=== PATIENT | male | born 1995 | race American Indian/Alaskan Native ===

== ENCOUNTER 2020-10-09 08:55 | Emergency (ER) | payer OTHER ==
[2020-10-09 11:34] VITALS: BP 121/71
--- NOTE | 2020-10-09 11:52 | Emergency Department Report ---
ED General Adult HPI - General Chief complaint: Extremity Injury, Lower Stated complaint: SWOLLEN FEET HANDS,PAIN IN LT LEG Time Seen by Provider: 10/09/20 11:46 Source: patient Mode of arrival: Ambulatory Limitations: No Limitations - History of Present Illness Initial comments: 25-year-old -[place] male patient presents with complaints of bilateral foot and hand swelling with pain for the past 2 days. He denies any injuries to his hands. 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 He denies any fever/chills/sweats, difficulty moving his limbs, numbness/tingling/weakness, or difficulty with ambulation. No past medical history per patient. He has not tried any OTC medications for his symptoms. Patient has allergy to ibuprofen Severity scale (0 -10): 8 - Related Data Previous Rx's Medication Instructions Recorded Last Taken Type Acetaminophen [Tylenol] 1,000 mg PO Q6H PRN #30 tablet 10/09/20 Unknown Rx Prednisone [predniSONE 10 mg 10 mg PO .TAPER #1 tab.ds.pk 10/09/20 Unknown Rx (6-Day Pack, 21 Tabs)] Allergies Allergy/AdvReac Type Severity Reaction Status Date / Time ibuprofen Allergy Swelling Verified 10/09/20 11:34 ED Review of Systems ROS: Stated complaint: SWOLLEN FEET HANDS,PAIN IN LT LEG Other details as noted in HPI Constitutional: denies: chills, diaphoresis, fever, malaise Musculoskeletal: joint swelling, arthralgia Skin: denies: change in color Neurological: denies: numbness, paresthesias, abnormal gait ED Past Medical Hx - Past Medical History Previous Medical History?: No - Surgical History Past Surgical History?: No - Medications Home Medications: Home Medications Medication Instructions Recorded Confirmed Last Taken Type Acetaminophen [Tylenol] 1,000 mg PO Q6H PRN #30 tablet 10/09/20 Unknown Rx Prednisone [predniSONE 10 mg 10 mg PO .TAPER #1 tab.ds.pk 10/09/20 Unknown Rx (6-Day Pack, 21 Tabs)] ED Physical Exam - General Limitations: No Limitations General appearance: alert, in no apparent distress - Head Head exam: Present: atraumatic, normocephalic - Eye Eye exam: Present: normal appearance - Respiratory Respiratory exam: Absent: respiratory distress - Cardiovascular Cardiovascular Exam: Present: regular rate - Extremities Exam Extremities exam: Present: other (Tenderness to palpation noted bilaterally to distal feet and palms of the hands and fingers without obvious swelling, dec reased sensation, decreased range of motion, erythema, or deformities) - Neurological Exam Neurological exam: Present: alert, oriented X3 - Psychiatric Psychiatric exam: Present: normal affect, normal mood - Skin Skin exam: Present: warm, dry, intact, normal color. Absent: rash ED Course Vital Signs 10/09/20 11:33 Temperature 98.3 F Pulse Rate 87 Respiratory 20 Rate Blood Pressure 121/71 [Right] O2 Sat by Pulse 97 Oximetry ED Medical Decision Making - Medical Decision Making 25-year-old -[place] male patient presents with complaints of bilateral foot and hand swelling with pain for the past 2 days. He denies any injuries to his hands. 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 He denies any fever/chills/sweats, difficulty moving his limbs, numbness/tingling/weakness, or difficulty with ambulation. No past medical history per patient. He has not tried any OTC medications for his symptoms. Patient has allergy to ibuprofen Tenderness to palpation noted to hands and feet bilaterally without any obvious deformities, redness, or swelling. Will try patient on trial of prednisone and Tylenol. Recommend patient follows up with PCP for further evaluation within 3 to 5 days. He is well-appearing and stable for discharge home. Discussed plan of care and signs and symptoms that should prompt immediate return to the emergency department in detail patient verbalizes understanding. Critical care attestation.: If time is entered above; I have spent that time in minutes in the direct care of this critically ill patient, excluding procedure time. ED Disposition Clinical Impression: Joint pain Disposition: 01 HOME / SELF CARE / HOMELESS Is pt being admited?: No Condition: Stable Instructions: Joint Pain Prescriptions: Acetaminophen [Tylenol] 1,000 mg PO Q6H PRN #30 tablet PRN Reason: pain Prednisone [predniSONE 10 mg (6-Day Pack, 21 Tabs)] 10 mg PO .TAPER #1 tab.ds.pk Referrals: [facility] [Provider Group] - 3-5 Days Forms: Work/School Release Form(ED)
== END 2020-10-09 11:52 | disposition home or self-care (01) ==
LOC: ED 08:55
DX: M25.542 Pain in joints of left hand (principal); M25.541 Pain in joints of right hand; Z88.8 Allergy status to other drugs, medicaments and biological substances
CPT/HCPCS: 99281